=== PATIENT | male | born 1950 | race Two or more races ===

== ENCOUNTER → 2022-09-11 | Emergency (ER) | payer OTHER ==
[~2022-09-11] VITALS: Ht 177.8 cm; Wt 85.7 kg
[~2022-09-11] MED LIST: JANTOVEN6 MG PO
== END | disposition left against medical advice (07) ==
LOC: ER 10:30
DX: R07.9 Chest pain, unspecified (principal); E11.9 Type 2 diabetes mellitus without complications; I80.9 Phlebitis and thrombophlebitis of unspecified site; I10 Essential (primary) hypertension; Z88.8 Allergy status to other drugs, medicaments and biological substances; Z20.822 Contact with and (suspected) exposure to COVID-19